=== PATIENT | female | born 1950 | race Caucasian/White ===

== ENCOUNTER → 2018-11-22 | Outpatient (CLI) | payer MEDICARE, BC ==
[~2018-11-22] MED LIST: HYDSUL200 PO; UNKNOWN B/P MED; [UNRECOGNIZED DRUG - REMARK]
[2018-11-23 15:14] LABS: Stool Occult Bld Immuno 1 Negative (NEGATIVE)
== END | disposition home or self-care (01) ==
LOC: LAB EV 00:49
PROVIDERS: Internal Medicine Gastroenterology
DX: Z12.11 Encounter for screening for malignant neoplasm of colon (principal)
CPT/HCPCS: G0328

== ENCOUNTER → 2018-11-23 | Outpatient (CLI) | payer MEDICARE, BC ==
[2018-11-24 14:15] LABS: Stool Occult Bld Immuno 1 Negative (NEGATIVE)
== END | disposition home or self-care (01) ==
LOC: LAB EV 09:22
PROVIDERS: Internal Medicine Gastroenterology
DX: Z12.11 Encounter for screening for malignant neoplasm of colon (principal)
CPT/HCPCS: G0328

== ENCOUNTER → 2020-12-01 | Outpatient (CLI) | payer MEDICARE, BC ==
[2020-12-02 14:15] LABS: Stool Occult Bld Immuno 1 Negative (NEGATIVE)
== END | disposition home or self-care (01) ==
LOC: LAB SHORT 09:30 → PLD 09:30
PROVIDERS: Family Medicine
DX: Z12.11 Encounter for screening for malignant neoplasm of colon (principal); R79.9 Abnormal finding of blood chemistry, unspecified; E78.9 Disorder of lipoprotein metabolism, unspecified
CPT/HCPCS: G0328

== ENCOUNTER 2021-12-23 11:51 | Emergency (ER) | payer MEDICARE, BC ==
[~2021-12-23] VITALS: Ht 160 cm; Wt 90.7 kg
[2021-12-23 12:52] LABS: BASOPHILS PERCENT AUTO 0 % (0-2); EOSINOPHILS ABSOLUTE AUTO 0.12 K/mm3 (0.00-0.68); EOSINOPHILS PERCENT AUTO 3 % (0-6); Hematocrit 35.1 % (33.0-51.0); Hemoglobin 11.8 g/dL (11.5-16.0); IMMATURE GRAN ABSOLUTE AUTO 0.01 K/mm3 (0.00-0.10); IMMATURE GRAN PERCENT AUTO 0 % (0-1); LYMPHOCYTES ABSOLUTE AUTO 1.37 K/mm3 (0.84-5.20); LYMPHOCYTES PERCENT AUTO 32 % (21-46); MONOCYTES ABSOLUTE AUTO 0.11 K/mm3 (0.16-1.47); MONOCYTES PERCENT AUTO 3 % (4-13); Mean Corpuscular HGB 32.8 pg (26.0-34.0); Mean Corpuscular HGB Conc 33.6 g/dL (31.5-36.5); Mean Corpuscular Volume 98 fL (80-100); Mean Platelet Volume 9.7 fL (9.1-12.4); NEUTROPHILS ABSOLUTE AUTO 2.66 K/mm3 (1.96-9.15); NEUTROPHILS PERCENT AUTO 62 % (41-73); RDW Coefficient Variation 14.9 % (11.7-14.2); RDW Standard Deviation 51.7 fL (35.1-46.3); White Blood Cell Count 4.27 K/mm3 (4.00-11.30)
[2021-12-23 12:55] LABS: Platelet Count 11 K/mm3 (150-400)
[2021-12-23 13:04] LABS: Alanine Aminotransfer (ALT/SGP 83 U/L (12-78); Albumin, Blood 3.1 g/dL (3.4-5.0); Albumin/Globulin Ratio 0.7 (0.8-1.8); Alk Phos 53 U/L (50-136); Anion Gap 5 mmol/L (6-16); Aspartate Aminotrans (AST/SGOT 81 U/L (12-37); Bilirubin, Total 0.5 mg/dL (0.1-1.0); Blood Urea Nitrogen 14 mg/dL (8-24); Bun/Creatinine Ratio 18.3 (12.0-20.0); CO2, Blood 29 mmol/L (21-32); Calcium, Blood 8.6 mg/dL (8.5-10.1); Chloride, Blood 105 mmol/L (98-108); Creatinine, Blood 0.77 mg/dL (0.40-1.00); Globulin, Blood 4.4 g/dL (2.2-4.0); Glomerular Filtration Rate >60 (60-); Glucose, Blood 109 mg/dL (70-99); Potassium, Blood 3.4 mmol/L (3.5-5.5); Sodium, Blood 139 mmol/L (136-145); Total Protein, Blood 7.5 g/dL (6.4-8.2)
[2021-12-23 16:35] LABS: Source, Urine Clean Catch
[2021-12-23 16:46] LABS: Appearance, Urine Clear (Clear); Bilirubin, Urine Neg (Neg); Blood, Urine 1+ (Neg); Glucose Qualitative, Urine Neg (Neg); Ketones, Urine 2+ (Neg); Leukocyte Esterase, Urine Neg (Neg); Nitrite, Urine Neg (Neg); Protein, Urine Neg (Neg); Urobilinogen, Urine NORM (Normal)
[2021-12-23 16:54] LABS: Color, Urine Pale Yellow (P-Yellow)
[2021-12-23 16:55] LABS: Bacteria Few /hpf; Red Blood Cells, Urine Rare /hpf (0-2); Squamous Epithelial Cells Rare /hpf (Few); White Blood Cells, Urine Not Seen /hpf (0-5)
[2021-12-23] MEDS ORDERED: AMOCLA875 PO (17:02)
[2021-12-23] MEDS ORDERED: PRED20 PO (17:02)
[2021-12-25] MEDS ORDERED: METOPROLOL SUCC25 MG PO (18:49)
[2021-12-25] MEDS ORDERED: Simvastatin10 MG PO (18:49)
[2021-12-25] MEDS ORDERED: METHOTREXATE PO (18:51)
[2021-12-25] MEDS ORDERED: MEDR10 PO (19:50)
[2021-12-25] MEDS ORDERED: ONDA4ODT SL (19:50)
== END 2021-12-23 17:13 | disposition home or self-care (01) ==
LOC: ER 11:51
PROVIDERS: Physician Assistant
DX: K52.9 Noninfective gastroenteritis and colitis, unspecified (principal); R93.89 Abnormal findings on diagnostic imaging of other specified body structures; D69.6 Thrombocytopenia, unspecified; I10 Essential (primary) hypertension; F17.200 Nicotine dependence, unspecified, uncomplicated; Z79.899 Other long term (current) drug therapy
CPT/HCPCS: 36415; 74177; 76830; 76856; 80053; 81001; 82272; 83690; 85025; 86850; 86900; 86901; 99284-25; A9270; J7030; J7512; Q9967

== ENCOUNTER → 2021-12-24 | Outpatient (CLI) | payer MEDICARE, BC ==
[~2021-12-24] MED LIST changes: +AMOCLA875 PO; +MEDR10 PO; +METHOTREXATE PO; +METOPROLOL SUCC25 MG PO; +ONDA4ODT SL; +PRED20 PO; +Simvastatin10 MG PO
[2021-12-24 15:53] LABS: RETIC HGB EQUIVALENT 42.4 pg (28.20-36.60); RETICULOCYTE ABSOLUTE 0.0174 M/mm3 (0.0200-0.1100); RETICULOCYTE COUNT PERCENT 0.5 % (0.50-2.50)
[2021-12-25 11:02] LABS: C DIFFICILE DNA NEGATIVE (Negative)
== END ==
LOC: LAB SHORT 15:17
PROVIDERS: Internal Medicine Hematology & Oncology
DX: D89.2 Hypergammaglobulinemia, unspecified (principal); K62.5 Hemorrhage of anus and rectum
CPT/HCPCS: 85045; 87493

== ENCOUNTER → 2021-12-28 | Outpatient (CLI) | payer MEDICARE, BC ==
[2021-12-29 18:10] LABS: HPV 16 Negative (Negative); HPV 18 Negative (Negative); HPV OTHER HR TYPES Negative (Negative)
== END | disposition home or self-care (01) ==
LOC: LAB SHORT 12:17 → LAB 12:17
PROVIDERS: Obstetrics & Gynecology
DX: Z01.419 Encounter for gynecological examination (general) (routine) without abnormal findings (principal)
CPT/HCPCS: 87624; G0123

== ENCOUNTER 2021-12-30 14:42 | Day surgery (SDC) | payer MEDICARE, BC ==
[~2021-12-30] VITALS: Ht 160 cm; Wt 89.6 kg
[2021-12-30 15:24] LABS: BASOPHILS ABSOLUTE AUTO 0.01 K/mm3 (0.00-0.23); BASOPHILS PERCENT AUTO 0 % (0-2); EOSINOPHILS ABSOLUTE AUTO 0.02 K/mm3 (0.00-0.68); EOSINOPHILS PERCENT AUTO 0 % (0-6); Hematocrit 35.6 % (33.0-51.0); Hemoglobin 11.7 g/dL (11.5-16.0); IMMATURE GRAN ABSOLUTE AUTO 0.19 K/mm3 (0.00-0.10); IMMATURE GRAN PERCENT AUTO 2 % (0-1); LYMPHOCYTES ABSOLUTE AUTO 2.12 K/mm3 (0.84-5.20); LYMPHOCYTES PERCENT AUTO 18 % (21-46); MONOCYTES ABSOLUTE AUTO 2.58 K/mm3 (0.16-1.47); MONOCYTES PERCENT AUTO 21 % (4-13); Mean Corpuscular HGB 32.7 pg (26.0-34.0); Mean Corpuscular HGB Conc 32.9 g/dL (31.5-36.5); Mean Corpuscular Volume 99 fL (80-100); Mean Platelet Volume 9.4 fL (9.1-12.4); NEUTROPHILS PERCENT AUTO 59 % (41-73); NRBC ABSOLUTE 0.09 K/mm3 (0.00-0.02); NRBC Auto 0.7 /100 WBC (0.0-0.2); Platelet Count 349 K/mm3 (150-400); RDW Coefficient Variation 18.8 % (11.7-14.2); RDW Standard Deviation 58.3 fL (35.1-46.3); Red Blood Cell Count 3.58 M/mm3 (3.80-5.20); White Blood Cell Count 12.12 K/mm3 (4.00-11.30)
--- NOTE | 2021-12-30 15:50 | NUR ---
Ambulatory in Day Surgery Lungs clear T/O to Auscultation. Patient confirms NPO status and agrees with scheduled surgery. Pre-Op teaching done. Pt verbalizes understanding. Patient States Post-Procedure ride home has been arranged.
--- NOTE | 2021-12-30 15:51 | NUR ---
PT HAD 2 PREOP CBCS DRAWN DUE TO THE FIRST ONE'S RESULTS BEING DRAMATICALLY DIFFERENT THEN HER PREVIOUS LABS. ORDERED BY DR. ALEXANDER AND DR. ESTRADA. DR. ESTRADA STATED NO EKG NEEDED TO BE DONE.
[2021-12-30 16:09] LABS: BASOPHILS ABSOLUTE AUTO 0.02 K/mm3 (0.00-0.23); BASOPHILS PERCENT AUTO 0 % (0-2); EOSINOPHILS ABSOLUTE AUTO 0.02 K/mm3 (0.00-0.68); EOSINOPHILS PERCENT AUTO 0 % (0-6); Hemoglobin 10.2 g/dL (11.5-16.0); IMMATURE GRAN ABSOLUTE AUTO 0.16 K/mm3 (0.00-0.10); IMMATURE GRAN PERCENT AUTO 1 % (0-1); LYMPHOCYTES ABSOLUTE AUTO 2.22 K/mm3 (0.84-5.20); LYMPHOCYTES PERCENT AUTO 19 % (21-46); MONOCYTES ABSOLUTE AUTO 2.53 K/mm3 (0.16-1.47); MONOCYTES PERCENT AUTO 22 % (4-13); Mean Corpuscular HGB 32.6 pg (26.0-34.0); Mean Corpuscular HGB Conc 32.9 g/dL (31.5-36.5); Mean Corpuscular Volume 99 fL (80-100); Mean Platelet Volume 9.3 fL (9.1-12.4); NEUTROPHILS ABSOLUTE AUTO 6.72 K/mm3 (1.96-9.15); NEUTROPHILS PERCENT AUTO 58 % (41-73); NRBC ABSOLUTE 0.08 K/mm3 (0.00-0.02); NRBC Auto 0.7 /100 WBC (0.0-0.2); Platelet Count 312 K/mm3 (150-400); RDW Coefficient Variation 18.8 % (11.7-14.2); RDW Standard Deviation 59.7 fL (35.1-46.3); Red Blood Cell Count 3.13 M/mm3 (3.80-5.20); White Blood Cell Count 11.67 K/mm3 (4.00-11.30)
--- NOTE | 2021-12-30 17:29 | NUR ---
1715- UP TO BR WITH STANDBY ASSIST ONLY. VOIDED EASILY AND HAD A SMALL AMT OF RED VAG DRAINAGE. IV DC'D WITH CATH INTACT. EATING CRACKERS AND DRINKING WATER W/O NAUSEA
--- NOTE | 2021-12-30 17:38 | NUR ---
1732-DISCHARGED TO HOME ACC BY
== END 2021-12-30 17:37 | disposition home or self-care (01) ==
LOC: ORSCMMR 14:42 → ORD 14:42
PROVIDERS: Obstetrics & Gynecology
PROC: 0UDB8ZX Extraction of Endometrium, Via Natural or Artificial Opening Endoscopic, Diagnostic (ICD-10-PCS; principal; 2021-12-30 15:00)
DX: N95.0 Postmenopausal bleeding (principal); N84.0 Polyp of corpus uteri; D64.9 Anemia, unspecified; D69.6 Thrombocytopenia, unspecified; R93.89 Abnormal findings on diagnostic imaging of other specified body structures; F17.210 Nicotine dependence, cigarettes, uncomplicated; J45.909 Unspecified asthma, uncomplicated; M19.90 Unspecified osteoarthritis, unspecified site; I10 Essential (primary) hypertension; E78.00 Pure hypercholesterolemia, unspecified; E66.9 Obesity, unspecified; Z68.35 Body mass index [BMI] 35.0-35.9, adult; E16.2 Hypoglycemia, unspecified; Z79.899 Other long term (current) drug therapy
CPT/HCPCS: 85025; 88305; A9270; J1100; J2405; J2704; J3010; J7120

== ENCOUNTER 2022-01-06 07:23 | Emergency (ER) | payer MEDICARE, BC ==
[~2022-01-06] VITALS: Ht 170.2 cm; Wt 83.9 kg
[2022-01-06 07:48] LABS: BASOPHILS ABSOLUTE AUTO 0.04 K/mm3 (0.00-0.23); BASOPHILS PERCENT AUTO 0 % (0-2); EOSINOPHILS PERCENT AUTO 0 % (0-6); Hematocrit 35.2 % (33.0-51.0); Hemoglobin 11.4 g/dL (11.5-16.0); IMMATURE GRAN ABSOLUTE AUTO 0.52 K/mm3 (0.00-0.10); IMMATURE GRAN PERCENT AUTO 4 % (0-1); LYMPHOCYTES ABSOLUTE AUTO 0.68 K/mm3 (0.84-5.20); LYMPHOCYTES PERCENT AUTO 6 % (21-46); MONOCYTES PERCENT AUTO 4 % (4-13); Mean Corpuscular HGB 32.5 pg (26.0-34.0); Mean Corpuscular HGB Conc 32.4 g/dL (31.5-36.5); Mean Corpuscular Volume 100 fL (80-100); Mean Platelet Volume 8.8 fL (9.1-12.4); NEUTROPHILS ABSOLUTE AUTO 10.38 K/mm3 (1.96-9.15); NEUTROPHILS PERCENT AUTO 86 % (41-73); NRBC ABSOLUTE 0.09 K/mm3 (0.00-0.02); NRBC Auto 0.7 /100 WBC (0.0-0.2); Platelet Count 632 K/mm3 (150-400); RDW Standard Deviation 70.7 fL (35.1-46.3); Red Blood Cell Count 3.51 M/mm3 (3.80-5.20); White Blood Cell Count 12.12 K/mm3 (4.00-11.30)
[2022-01-06 08:06] LABS: Alanine Aminotransfer (ALT/SGP 33 U/L (12-78); Albumin, Blood 3.1 g/dL (3.4-5.0); Albumin/Globulin Ratio 0.8 (0.8-1.8); Alk Phos 52 U/L (50-136); Anion Gap 5 mmol/L (6-16); Aspartate Aminotrans (AST/SGOT 20 U/L (12-37); Bilirubin, Total 0.4 mg/dL (0.1-1.0); Blood Urea Nitrogen 21 mg/dL (8-24); Bun/Creatinine Ratio 23.8 (12.0-20.0); CO2, Blood 29 mmol/L (21-32); Calcium, Blood 8.6 mg/dL (8.5-10.1); Chloride, Blood 108 mmol/L (98-108); Creatinine, Blood 0.88 mg/dL (0.40-1.00); Globulin, Blood 3.7 g/dL (2.2-4.0); Glomerular Filtration Rate >60 (60-); Glucose, Blood 142 mg/dL (70-99); Potassium, Blood 4.3 mmol/L (3.5-5.5); Sodium, Blood 142 mmol/L (136-145); Total Protein, Blood 6.8 g/dL (6.4-8.2)
[2022-01-06 08:12] LABS: International Normalized Ratio 1.11; Prothrombin Time Results 11.6 Sec (9.7-11.5)
== END 2022-01-06 09:52 | disposition short-term general hospital (02) ==
LOC: ER 07:23
PROVIDERS: Student in an Organized Health Care Education/Training Program
DX: I63.9 Cerebral infarction, unspecified (principal); R47.1 Dysarthria and anarthria; Z79.899 Other long term (current) drug therapy; Z79.52 Long term (current) use of systemic steroids; I10 Essential (primary) hypertension
CPT/HCPCS: 70450; 70496; 70498; 71045; 80053; 82947; 85025; 85610; 85730; 93005; 93010; 99285-25; A9270; Q9967

== ENCOUNTER → 2022-03-01 | Outpatient (CLI) | payer MEDICARE, BC ==
[2022-03-01 21:26] LABS: Percent Saturation 25.8 % (15.0-50.0); Thyroid Stimulating Hormone 1.27 uIU/mL (0.360-4.800); Thyroxine (T4) 10.2 ug/dL (4.8-13.9)
== END ==
LOC: LAB SHORT 11:23
PROVIDERS: Internal Medicine Hematology & Oncology
DX: E53.8 Deficiency of other specified B group vitamins (principal); D69.6 Thrombocytopenia, unspecified; R53.83 Other fatigue
CPT/HCPCS: 82607; 82728; 82746; 83540; 83550; 84436; 84443

== ENCOUNTER 2022-03-30 09:49 | Day surgery (SDC) | payer MEDICARE, BC ==
[~2022-03-30] VITALS: Ht 162.6 cm; Wt 86.0 kg
[2022-03-30] MEDS ORDERED: ATOR20 PO (11:05)
[2022-03-30] MEDS ORDERED: Aspir 8181 MG PO (11:05)
== END 2022-03-30 12:18 | disposition home or self-care (01) ==
LOC: ORSCSDS 09:49
PROVIDERS: Internal Medicine Gastroenterology
PROC: 0DBN8ZX Excision of Sigmoid Colon, Via Natural or Artificial Opening Endoscopic, Diagnostic (ICD-10-PCS; principal; 2022-03-30 11:15)
DX: K62.5 Hemorrhage of anus and rectum (principal); K57.30 Diverticulosis of large intestine without perforation or abscess without bleeding; Z86.010 Personal history of colon polyps; K52.9 Noninfective gastroenteritis and colitis, unspecified; F17.210 Nicotine dependence, cigarettes, uncomplicated; E66.9 Obesity, unspecified; Z68.34 Body mass index [BMI] 34.0-34.9, adult; Z79.82 Long term (current) use of aspirin; Z79.899 Other long term (current) drug therapy
CPT/HCPCS: 88305; J2704; J7120

== ENCOUNTER 2025-06-11 11:36 | Inpatient (IN) | payer MEDICARE, BC ==
[~2025-06-11] VITALS: Ht 157.5 cm; Wt 63.5 kg
[~2025-06-11 11:36] MED LIST changes: +ATOR20 PO; +Aspir 8181 MG PO
[2025-06-11] MEDS ORDERED: NS 1,000 ML IV SCH ×3 (11:50→16:45)
[2025-06-11 12:22] LABS: BASOPHILS ABSOLUTE AUTO 0.03 K/mm3 (0.00-0.23); BASOPHILS PERCENT AUTO 0 % (0-2); EOSINOPHILS ABSOLUTE AUTO 0.01 K/mm3 (0.00-0.68); EOSINOPHILS PERCENT AUTO 0 % (0-6); Hematocrit 42.3 % (33.0-51.0); Hemoglobin 14.6 g/dL (11.5-16.0); IMMATURE GRAN ABSOLUTE AUTO 0.09 K/mm3 (0.00-0.10); IMMATURE GRAN PERCENT AUTO 1 % (0-1); LYMPHOCYTES ABSOLUTE AUTO 0.93 K/mm3 (0.84-5.20); LYMPHOCYTES PERCENT AUTO 6 % (21-46); MONOCYTES ABSOLUTE AUTO 2.06 K/mm3 (0.16-1.47); MONOCYTES PERCENT AUTO 14 % (4-13); Mean Corpuscular HGB Conc 34.5 g/dL (31.5-36.5); Mean Corpuscular Volume 96 fL (80-100); NEUTROPHILS ABSOLUTE AUTO 12.10 K/mm3 (1.96-9.15); NEUTROPHILS PERCENT AUTO 80 % (41-73); NRBC ABSOLUTE 0.00 K/mm3 (0.00-0.02); NRBC Auto 0.0 /100 WBC (0.0-0.2); Platelet Count 188 K/mm3 (150-400); RDW Coefficient Variation 15.2 % (11.7-14.2); RDW Standard Deviation 53.2 fL (35.1-46.3)
[2025-06-11 12:49] LABS: Alanine Aminotransfer (ALT/SGP 24.0 U/L (12-78); Albumin, Blood 3.6 g/dL (3.4-5.0); Albumin/Globulin Ratio 0.9 (0.8-1.8); Anion Gap 8.0 mmol/L (3-11); Aspartate Aminotrans (AST/SGOT 39.0 U/L (12-37); Bilirubin, Total 0.5 mg/dL (0.1-1.0); Blood Urea Nitrogen 26.0 mg/dL (8-24); CO2, Blood 32.0 mmol/L (21-32); Calcium, Blood 11.5 mg/dL (8.5-10.1); Chloride, Blood 98.0 mmol/L (98-108); Creatinine, Blood 0.69 mg/dL (0.40-1.00); Globulin, Blood 4.2 g/dL (2.2-4.0); Glucose, Blood 128.0 mg/dL (70-99); Potassium, Blood 2.9 mmol/L (3.5-5.5); Sodium, Blood 135.0 mmol/L (136-145); Total Protein, Blood 7.8 g/dL (6.4-8.2)
[2025-06-11] MEDS ORDERED: Prochlorperazine Edisylate 10 mg Vial IV PRN (16:40)
[2025-06-11] MEDS ORDERED: HYDROmorphone HCl/Pf 1MG SYR IV PRN (16:45)
[2025-06-11] MEDS ORDERED: Ketorolac Tromethamine 15mg Vial IV PRN (16:55)
[2025-06-11] MEDS ORDERED: Dexamethasone Sodium Phosphate 4 MG/ML 1ML Vial IV SCH (17:00)
[2025-06-11 20:25] VITALS: BP 148/72
[2025-06-11 21:33] LABS: Anion Gap 10.0 mmol/L (3-11); Blood Urea Nitrogen 17.0 mg/dL (8-24); CO2, Blood 27.0 mmol/L (21-32); Calcium, Blood 9.6 mg/dL (8.5-10.1); Chloride, Blood 106.0 mmol/L (98-108); Creatinine, Blood 0.49 mg/dL (0.40-1.00); Glucose, Blood 127.0 mg/dL (70-99); Potassium, Blood 3.8 mmol/L (3.5-5.5); Sodium, Blood 139.0 mmol/L (136-145)
[2025-06-12 03:05] VITALS: BP 162/64
--- NOTE | 2025-06-12 05:51 | NUR ---
ADMISSION AND SHIFT SUMMARY ASSUMED CARE AT 1954. A/Ox4, HR 55-69, OTHER VSS ON RA. PT REPORTS 8-9/10 PAIN AT R LEG AND LOW BACK, PRN DILAUDID EFFECTIVE. MED RECONCILIATION INCOMPLETE; PT STATES SPOUSE WILL PROVIDE CURRENT LIST. PT REPORTS SHE'S GONE A WEEK WITHOUT TAKING HOME MEDS " NOT ABLE TO ACCESS THEM". NS AT 125 ML/HR. CLEAR LIQUID DIET. MRI CHECKLIST WAS FAXED. ORTHO CONSULT PLACED.
[2025-06-12 06:22] LABS: Hematocrit 38.3 % (33.0-51.0); Hemoglobin 12.9 g/dL (11.5-16.0); Mean Corpuscular HGB Conc 33.7 g/dL (31.5-36.5); Mean Corpuscular Volume 98 fL (80-100); NRBC ABSOLUTE 0.00 K/mm3 (0.00-0.02); NRBC Auto 0.0 /100 WBC (0.0-0.2); Platelet Count 153 K/mm3 (150-400); RDW Coefficient Variation 15.3 % (11.7-14.2); RDW Standard Deviation 54.4 fL (35.1-46.3)
[2025-06-12 07:16] LABS: Albumin, Blood 3.1 g/dL (3.4-5.0); Anion Gap 9 mmol/L (3-11); Blood Urea Nitrogen 17 mg/dL (8-24); CO2, Blood 29 mmol/L (21-32); Calcium, Blood 9.4 mg/dL (8.5-10.1); Chloride, Blood 106 mmol/L (98-108); Creatinine, Blood 0.47 mg/dL (0.40-1.00); Glucose, Blood 105 mg/dL (70-99); Magnesium, Blood 2.1 mg/dL (1.6-2.4); Phosphorus, Blood 1.9 mg/dL (2.5-4.9); Potassium, Blood 3.5 mmol/L (3.5-5.5); Sodium, Blood 140 mmol/L (136-145)
[2025-06-12 07:40] VITALS: BP 143/68
[2025-06-12] MEDS ORDERED: Sodium Phosphate Mono/Dibasic 250 MG Tab PO SCH (08:00)
[2025-06-12] MEDS ORDERED: Enoxaparin 40 MG/0.4 ML SYR SC SCH (09:00)
--- NOTE | 2025-06-12 10:13 | NUR ---
ASSUMED CARE. PT A/O X 4 VERY PLEASENT, LAY QUIETLY IN BED AWAITING MRI, NO C/O PAIN AT THIS TIME. WAS NOTIFIED TO PLEASE BRING IN PT MEDICATION. CALL LIGHT WITHIN REACH MAKES NEEDS KNOWN.
--- NOTE | 2025-06-12 14:24 | NUR ---
Spiritual Care Visit conducted Chantelle (pt) is awake and lying upright in bed. Pt is friendly and conversational and often laughs in the midst of our discussion. Life review conducted. Pt finds value and meaning in her relationship and describes how she and her spouse met. Pt believes "god put him there." Examined pt's spiritual beliefs. Pt says she "believes robustly but does not preach robustly." Provided compassionate listening and encouraged pt in her continuing "robust" beliefs. Pt believes in "looking forward and focusing on the postive" as a way of coping with her circumstances. Pt emphasizes her difficulty walking as one her main challenges in addition to various bouts with cancer. Pt communicated that she was beginning to feel tired, offerred prayed to pt. Pt accepted and thanked me for the visit and asked me to stop by again later. Pt described the visit as helpful and appeared more at ease following the visit.
[2025-06-12 15:29] VITALS: BP 152/70
[2025-06-12] MEDS ORDERED: FOLI1 PO (16:47)
--- NOTE | 2025-06-12 17:01 | NUR ---
MET WITH PATIENT TO DISCUSS GOALS OF CARE. PATIENT EXPRESSED THAT SHE DOES NOT FEEL WELL. WE DISCUSSED HER DIAGNOSIS. PATIENT REPORTED THAT SHE WOULD LIKE TO SPEAK TO ONCOLOGY TO DISCUSS TREATMENT PLAN. WE DISCUSSED CODE STATUS AND SHE WOULD LIKE TO REMAIN A FULL CODE AT THIS TIME. THERAPUTIC CONVERSATION
--- NOTE | 2025-06-12 18:49 | NUR ---
PT DOING WELL, MINIMAL PAIN 6/10 PT MEDICATED. CALL LIGHT WITHIN REACH AND HAS BEEN MAKING NEEDS KNOWN. [facility] CANTACTED AND WILL BE HAVINING APPOINTMENT WITH PT CONCERING TREATMENT PLAN, PT WILL HAVE TO BE PRESENT ACROSS THE STREET INORDER TO HAVE MORE IMAGES DONE FOR TREATMENT.. AMBULANCE WILL BE CALLED IN AT 0800 FOR 0900 APPONTMENT.
[2025-06-12] MEDS ORDERED: Albuterol 2.5 MG/3 ML VIAL INH PRN (19:15)
[2025-06-12 19:54] VITALS: BP 140/59
[2025-06-13 04:59] VITALS: BP 150/84
--- NOTE | 2025-06-13 06:31 | NUR ---
Shift Summary Pt medicated per EMAR for headache and back pain. No dilauded needed this shift, good relief with Toradol. Pt slept comfortably t/o most of the night. Purewick in place for voids. Pt AOx4, calls appropriatly. Plan for ambulance transport to [facility] today at 0800 and then back to [facility].
[2025-06-13 07:22] VITALS: BP 153/61
--- NOTE | 2025-06-13 11:45 | NUR ---
DR RAT, ORTHOPEDIC MD ACCEPTED CONSULT, SPOKEN TO ON THE PHONE.
--- NOTE | 2025-06-13 14:02 | NUR ---
"Spiritual Care Visit m| Pt./ Nurse Request Pt. is awake in bed and welcomes my visit. Pt. is pleasant. Facilitated a life review and introduction as this was our first visit. Pt. verbalized frustration that her cancer diagnosis sometimes makes it hard to get her words out. Listen with empathy and a calming presence. Pt. also verbalzies that she live in [place], and her recent health stuggles have really only presenrted themselve in the las 2-3 weeks. During the visit Dr. Tamez dropped in and spent time with the Pt. while this recycling tech was present. Matters of brandee and belief are considered and clarified. Took Pt. by the hand and prayed for her. Pt. verbalizes that prayer was the care she presently needed and welcomed this recycling tech to return."
--- NOTE | 2025-06-13 16:09 | NUR ---
SHIFT SUMMARY MS MEJIA WAS TRANSFERED VIA [facility] TO THE [facility]ER C[facility] THIS MORNING FOR APPROX 2 HOURS. SHE SAID SHE GOT HER MASK FITTED IN PREP FOR RADIATION TREATMENT STARTING ON MONDAY. SHE HAS SOME NAUSEA, MEDICATED, NO EMESIS, STILL ON CLEAR LIQUID DIET AND TOLERATING IT SLOWLY. DR ART CONTACTED REGARDING ORTHO REFERAL. SHE IS C/O PAIN TO HER LOWER BACK. HER RIGHT LEG IS SORE WHEN IT IS REPOSITIONED. PAIN DOWN TO 5/10 POST ANALGESIA. SHE IS NONE WEIGHT BEARING, REPOSITIONED IN BED Q2HRS. SHE REPORTS DOUBLE VISION THAT HAS BEEN ON AND OFF FOR 6 DAYS. ALSO C/O SOME DIFFICULTY FINDING WORDS AT TIMES, AND THAT HER THOUGHTS GET MUDDLED. APPROPRIATE CONVERSATION, ORIENTATED TO QUESTIONS. INCONTINENT OF URINE, PURE WICK IN PLACE. BED LOW, CALL LIGHT IN REACH, BED ALARM ON.
[2025-06-13 16:25] VITALS: BP 155/66
[2025-06-13 19:56] VITALS: BP 153/78
[2025-06-13 20:43] VITALS: BP 169/87
[2025-06-13] MEDS ORDERED: Metoprolol Tartrate 1 MG/ML 5 ML VIAL IV ONE (21:15)
--- NOTE | 2025-06-13 21:38 | NUR ---
SVT/CHEST PRESSURE ENTERTAINMENT REPORTER notified this RN RE patient c/o "heart racing". Selena Antonio, (systems program manager) was already in the room by the time this RN arrived. VS obtained and HR found to be at 105. Per Selena, manual HR was at 150 moments ago when pt c/o her heart racing. Once vitals obtained, HR slowly increased and now was 170's on the VS cart monitor. EKG obtained which showed STEMI. Patient never c/o chest pain or shortness of breath except a little bit of pressure to the left of her sternum and the palpitations. Keely Martinez NP called and received T.O. for stat EKG, Troponin now and another one 2 hours from now, and telemetry. Copy of EKG sent down to ER for review per Gustavo's request. When Gustavo arrived to take a look at patient, received V.O. from Gustavo to give once 5mg IV lopressor for heart rate of 170. Upon review of home meds and further questioning, patient did report not taking her metoprolol for approx 1-2 weeks now. Gustavo will resume home med PO metoprolol succinate. Tele placed on patient. Repeat EKG done per Gustavo at the bedside; this time shows NSR w/ BBB @ 90 bpm.
[2025-06-13] MEDS ORDERED: Ondansetron HCl 2 MG / ML 2ML Vial IV PRN (23:25)
--- NOTE | 2025-06-13 23:26 | NUR ---
PO METOPROLOL, MELATONIN, & ZOFRAN Awaiting order for metoprolol tartrate but have not seen it. Call made to tye Chen NP for updates on the order he said he was going to enter above. Since patient was requesting for melatonin and persistent nausea, also inquired about adding in the other prn meds above. Received T.O. to give 25mg PO metoprolol tartrate BID with first dose now, 5mg PO melatonin nightly prn for sleep, and 4mg iv zofran every 4 hours as needed for nausea. Orders entered.
[2025-06-13 23:41] VITALS: BP 145/64
[2025-06-14] VITALS (8 sets, daily range): BP systolic 127–155; BP diastolic 60–91
[2025-06-14 06:39] LABS: Anion Gap 6.0 mmol/L (3-11); Blood Urea Nitrogen 17.0 mg/dL (8-24); CO2, Blood 33.0 mmol/L (21-32); Calcium, Blood 9.4 mg/dL (8.5-10.1); Chloride, Blood 102.0 mmol/L (98-108); Creatinine, Blood 0.56 mg/dL (0.40-1.00); Glucose, Blood 122.0 mg/dL (70-99); Potassium, Blood 4.3 mmol/L (3.5-5.5); Sodium, Blood 137.0 mmol/L (136-145)
--- NOTE | 2025-06-14 08:04 | NUR ---
Shift Summary After the events that occurred at the beginning of the shift, patient is doing well. Slept pretty good. Medicated x 1 for for severe back pain and nausea with good effect. Tele: NSR BBB 60-70s. Voiding well, purewick in place. Last bm was charted for 06/11, but no bowel meds have been ordered despite Progress Note stating constipation. Plan for MRI of R leg and to have her first radiation treatment on Monday. Claudia, primary day RN to followup w/ bowel care. Report handed off to Claudia, care relinquished.
--- NOTE | 2025-06-14 09:40 | NUR ---
HEART RATE SUSTAINED 140S. BP STABLE. SHE TOOK PO METOPROLOL AROUND 15 MINUTES BEFORE EPISODE STARTED. PT FEELS ASYMPTOMATIC. DR LACEY ASSESSED PT AND PUTTING IN NEW ORDERS.
[2025-06-14] MEDS ORDERED: Metoprolol Tartrate 1 MG/ML 5 ML VIAL IV PRN (09:45)
[2025-06-14] MEDS ORDERED: NS 1,000 ML IV SCH (11:00)
--- NOTE | 2025-06-14 13:44 | NUR ---
RN NOTE MS MEJIA HAD MRI DONE THIS MORNING W/WO CONTRAST. ON RETURN SHE STOOD WITH WALKER AND GAIT BELT AND 1-2 PERSON ASSIST AND WALKED A FEW STEPS TO THE RECLINER. SHE DID WELL. SHE GOT TORADOL THAT HELPED TO EASE THE PAIN. SHE SAID SHE FELT READY FOR MORE SOLID FOOD AND TOLERATED A SANDWICH AND PUDDING WITH HER LUNCH. NO EMESIS, MILD NAUSEA BUT DECLINING NAUSEA MEDICATIONS. BACK TO BED WITH WALKER/GB AND 1 PERSON ASSIST. INCONTINENT OF URINE, USING PUREWICK. SHE REPORTS THAT URINARY INCONTINENCE IS JUST FOR THE PAST TWO WEEKS. NO BM, DR LACEY NOTIFIED AND COLACE GIVEN. HEART RATE INCREASE TO 140S WITH PT ASYMPTOMATIC THIS MORNING RETURNED TO RATE IN THE 70S WITHOUT METOPROLOL IV.
--- NOTE | 2025-06-14 19:47 | NUR ---
SHIFT SUMMARY MS MEJIA HAD R LEG MRI THIS MORNING, AND IS ON THE OR SCHEDULE FOR SURGERY TOMORROW, NPO POST MIDNIGHT. SHE GOT A BATH AND INFECTION PREVENTION SCRUB/MOUTH WATH/NARES AT 1900HRS. SHE IS ORIENTATED X4, SOME OCCASIONAL DIFFICULTY FINDING WORDS AND SHE STILL HAS DOUBLE VISION. SHE STARTED A REGULAR DIET TODAY AND ENJOYED LUNCH AND SUPPER WITH MINIMAL NAUSEA. SR 1ST DEGREE AVB ON TELEMETRY. HR SUSTAINED 140S THIS AM FOR SEVERAL MINUTES, PT ASYMPTOMATIC AND NO EPISODES SINCE. NO BM TODAY +FLATUS. BED LOW, CALL LIGHT IN REACH.
[2025-06-15] VITALS (7 sets, daily range): BP systolic 116–177; BP diastolic 60–105
--- NOTE | 2025-06-15 04:28 | NUR ---
PATIENT A/OX4, PLEASANT AND COOPERATIVE WITH CARE THIS SHIFT. NPO SINCE MIDNIGHT FOR R LEG SURGERY TODAY. PATIENT INCONTINENT OF URINE, PUREWICK IN USE. SKIN INTACT. MEDICATED FOR LOW BACK PAIN X2 THIS SHIFT. CONTINUES TO HAVE "DOUBLE VISION." PATIENT ALSO HAVING SOME VISUAL HALLUCINATIONS AND SAW AN ORANGE CAT AND AN OLD MAN IN HER ROOM. BED ALARM SET FOR SAFETY. CALLS APPROPRIATELY FOR ASSISTANCE.
[2025-06-15 06:28] LABS: Magnesium, Blood 1.9 mg/dL (1.6-2.4)
[2025-06-15 06:29] LABS: Anion Gap 11.0 mmol/L (3-11); Blood Urea Nitrogen 15.0 mg/dL (8-24); CO2, Blood 25.0 mmol/L (21-32); Calcium, Blood 8.4 mg/dL (8.5-10.1); Chloride, Blood 105.0 mmol/L (98-108); Creatinine, Blood 0.42 mg/dL (0.40-1.00); Glucose, Blood 110.0 mg/dL (70-99); Phosphorus, Blood 2.3 mg/dL (2.5-4.9); Potassium, Blood 4.0 mmol/L (3.5-5.5); Sodium, Blood 137.0 mmol/L (136-145)
[2025-06-15] MEDS ORDERED: Dexamethasone Sodium Phosphate 4 MG/ML 1ML Vial IV SCH ×2 (11:15→21:00)
--- NOTE | 2025-06-15 18:11 | NUR ---
PATIENT IS ALERT AND ORIENTED AND COOPERATIVE WITH CARE. SOME WORD FINDING DIFFICULTIES. LOW BACK PAIN MANAGED PER EMAR AND WITH A HEATING PAD. PROCEDURE WAS CANCELED TODAY, DR. ART ORDERED NPO AT MIDNIGHT FOR POSSIBLE PROCEDURE TOMORROW. TELE IN PLACE, SR AT 75 BPM. THREE EPISODES OF SVT TODAY, MANAGED PER EMAR AND DR. LACEY NOTIFIED. PUREWICK IN PLACE. SMALL BM THIS AFTERNOON. WILL CONTINUE TO MONITOR
[2025-06-16] VITALS (7 sets, daily range): BP systolic 147–182; BP diastolic 64–97
--- NOTE | 2025-06-16 05:09 | NUR ---
SHIFT SUMMARY: PT AOX4 2PA TO THE BSC. CALLS APPROPRIATELY AND ABLE TO MAKE NEEDS KNOWN. PT TOLERATING MEDICATIONS WELL. COMPLAINTS OF PAIN, MEDICATED PER EMR. HAD A RUN OF AFIB RVR PER TELE AT START OF SHIFT WHICH RESOLVED ON ITS OWN. NO ACUTE OVERNIGHT EVENTS. ATTEMPTED TO HAVE A BM BUT ONLY SOME GAS. PT HAS PUREWICK IN PLACE WITH GOOD OUTPUT. DENIES SOB OR CP. PT IN BED SLEEPING, BED IN LOWEST POSITION, CALL LIGHT IN REACH. CARDIOLOGY CONSULT PUT IN THIS PM. MADE NPO AT MIDNIGHT FOR POTENTIAL SX TODAY. CONTINUING CARE.
[2025-06-16] MEDS ORDERED: Tranexamic Acid 100 ML IV SCH (07:20)
[2025-06-16] MEDS ORDERED: CeFAZolin Sodium 2,000 MG in NS 100 ML IV SCH (07:20)
[2025-06-16] MEDS ORDERED: Pantoprazole Sodium 40 MG Injection IV SCH (10:00)
[2025-06-16] MEDS ORDERED: Dexamethasone Sodium Phosphate 4 MG/ML 1ML Vial IV SCH (10:00)
--- NOTE | 2025-06-16 15:03 | NUR ---
PT LEFT FOR DAY SURGERY- PT GOING TO DAY SURGERY WITH DR WILKES. RAD ONCOLOGY NOTIFIED AND THE PT WILL NOT BE GOING TO RAD TREATMENT TODAY POST-OP. UNCERTAIN THE PLAN FOR DISCHARGE AT THIS TIME. FAMILY IS VERY INVOLVED AND TRYING TO DETERMINE WHAT IS NEXT FOR HER IN HER TREATMENT CORSE.
--- NOTE | 2025-06-16 15:33 | NUR ---
PT TRANSPORTED TO [facility]. AGREES WITH PLANNED SURGERY. OCCASIONAL MOIST COUGH, LUNGS CLEAR TO ASCULTATION. ON O2 AT 2LPM. FAMILY AT BEDSIDE. PUREWICK IN PLACE. DRAINING RED URINE. SPOKE WITH MEDICAL FLOOR RN AND SHE STATES IT HAS BEEN PINK ALL DAY. PURE WICK REMOVED. NOT VAGINAL IRITATIN NOTED. PATIENT DENIES PAIN. MEDICAL FLOOR NURSE NOTIFIED AND SHE STATES SHE WILL INFORM HOSPITALIST.
--- NOTE | 2025-06-16 16:03 | NUR ---
DR. RODRIGUEZ NOTIFED OF RED IN URINE. HE SPOKE WITH PATIENT AND FAMILY AND CANCELLED SURGERY FOR TODAY. HE STATES HE WILL NOTIFY HOSPITALIST FOR A WORKUP AND POTENTIALLY DO SURGERY TOMORROW. PATIENT TRANSFERRED BACK TO MEDICAL FLOOR AND BRADY PRYOR GIVEN REPORT.
[2025-06-16 16:34] LABS: Hematocrit 41.1 % (33.0-51.0); Hemoglobin 13.8 g/dL (11.5-16.0); Mean Corpuscular HGB Conc 33.6 g/dL (31.5-36.5); Mean Corpuscular Volume 97 fL (80-100); NRBC ABSOLUTE 0.00 K/mm3 (0.00-0.02); NRBC Auto 0.0 /100 WBC (0.0-0.2); Platelet Count 183 K/mm3 (150-400); RDW Coefficient Variation 15.3 % (11.7-14.2); RDW Standard Deviation 54.4 fL (35.1-46.3)
[2025-06-16 16:38] LABS: Prothrombin Time Results 12.4 Sec (9.7-11.5)
[2025-06-16 17:08] LABS: Source, Urine Clean Catch
[2025-06-16 17:45] LABS: Bilirubin, Urine Neg (Neg); Glucose Qualitative, Urine Neg (Neg); Ketones, Urine Neg (Neg); Leukocyte Esterase, Urine 3+ (Neg); Protein, Urine 3+ (Neg); Specific Gravity, Urine 1.010 (1.003-1.022); Urobilinogen, Urine NORM (Normal)
[2025-06-16 18:07] LABS: Color, Urine Red (P-Yellow)
[2025-06-16 18:08] LABS: Red Blood Cells, Urine TNTC /hpf (0-2); White Blood Cells, Urine TNTC /hpf (0-5)
[2025-06-16] MEDS ORDERED: CefTRIAXone Sodium 1,000 MG in NS 100 ML IV SCH (18:35)
[2025-06-16] MEDS ORDERED: NS 1,000 ML IV SCH (18:35)
--- NOTE | 2025-06-16 19:46 | NUR ---
SHIFT SUMMARY- PT ALERT AND ORIENTED, SHE HAS SOME DIFFICUTY FINDING HER WORDS AND HER HEART RACES INTO SVT OFF AND ON LEAVING HER TOO WEAK TO PARTICIPATE MUCH. TONIGHT SHE SUSTAINED SVT FOR 7 MINUTES, DR NOTIFIED, SHE WAS AT A RATE OF 150-170 PER TELE. PT DROPPED BACK TO 64-71 RATE SUDDENLY ON HER OWN. IV METOPROLOL WAS PULLED BUT NOT GIVEN, PLACED IN THE PT LOCKED DRAWER. PT WAS SCHEDULED TO GO FOR SURGERY TODAY, BUT SHE DEVELOPED BLOODY URINE. UA COMPLETED. SPOKE TO DR LACEY AND THE PT HAS AN ORDER FOR IVF AND ROCEPHIN. NIGHT RN AWARE. NPO AT MIDNIGHT FOR SURGERY TOMORROW. BEDSIDE REPORT COMPLETED WITH NIGHT RN, NO S&S OF DISTRESS NOTED.
[2025-06-17] VITALS (8 sets, daily range): BP systolic 146–175; BP diastolic 65–90
--- NOTE | 2025-06-17 04:56 | NUR ---
SHIFT SUMMARY: PT AOX4 CALLS APPROPRIATELY AND ABLE TO MAKE NEEDS KNOWN. TOLERATING MEDICATIONS WELL, NO ACUTE OVERNIGHT EVENTS. STILL HAVING RED OUTPUT IN THE PUREWCK, NO SIGNS OF EXCORIATION OR SKIN BREAK DOWN AROUND IT. ANXIOUS TO HAVE PROCEDURE DONE. PALLIATIVE CONSULTED TO HAVE A MEETING WITH HER AND AT 10. COMPLAINTS OF PAIN AND NAUSEA MEDICATED PER EMR. PT MADE NPO AT MIDNIGHT. PT IN BED SLEEPING, BED IN LOWEST POSITION, CALL LIGHT IN REACH. CONTINUING CARE.
[2025-06-17 05:11] LABS: Hematocrit 40.8 % (33.0-51.0); Hemoglobin 13.6 g/dL (11.5-16.0); Mean Corpuscular HGB Conc 33.3 g/dL (31.5-36.5); Mean Corpuscular Volume 97 fL (80-100); NRBC ABSOLUTE 0.02 K/mm3 (0.00-0.02); NRBC Auto 0.1 /100 WBC (0.0-0.2); Platelet Count 151 K/mm3 (150-400); RDW Coefficient Variation 15.1 % (11.7-14.2); RDW Standard Deviation 53.2 fL (35.1-46.3)
[2025-06-17 05:35] LABS: Magnesium, Blood 2.1 mg/dL (1.6-2.4)
[2025-06-17 05:36] LABS: Anion Gap 7.0 mmol/L (3-11); Blood Urea Nitrogen 20.0 mg/dL (8-24); CO2, Blood 33.0 mmol/L (21-32); Calcium, Blood 9.9 mg/dL (8.5-10.1); Chloride, Blood 99.0 mmol/L (98-108); Creatinine, Blood 0.52 mg/dL (0.40-1.00); Glucose, Blood 117.0 mg/dL (70-99); Phosphorus, Blood 2.4 mg/dL (2.5-4.9); Potassium, Blood 3.4 mmol/L (3.5-5.5); Sodium, Blood 136.0 mmol/L (136-145)
[2025-06-17] MEDS ORDERED: Potassium Phosphate Dibasic 30 MM in Dextrose 5% 500 ML IV STA (11:11)
--- NOTE | 2025-06-17 12:13 | NUR ---
MET WITH PT AND JACKIE THIS AM. WE DISCUSSED GOALS OF CARE, AND BOTH PATIENT AND APPEAR TO BE REALISTIC REGARDING PT'S PROGNOSIS. THEY HAVE QUESTIONS ABOUT THE LIKELIHOOD OF PT BEING ABOUT TO WEIGHT BEAR AGAIN, AND IF SHE CAN TOLERATE RADIATION. SHE IS SCHEDULED TODAY FOR SURGICAL REPAIR OF PATHOLOGIC RIGHT FEMUR FRACTURE. THEY ALSO REPORT THE PATIENT IS SCHEDULED FOR RADIATION 2 TIMES THIS WEEK. BOTH PT AND WERE AGREEABLE TO CHANGE CODE STATUS TO DNR ONCE THEY VERBALIZED UNDERSTANDING OF THE DIFFERENCE BETWEEN FULL CODE AND DNR. THEY ARE STILL DECIDING ABOUT LIMITED VS FULL ON PART B, BUT LEANING TOWARDS LIMITED GIVEN THE PATIENT'S POOR PROGNOSIS. THIS PC RN WILL CONTINUE OFFERING SUPPORTIVE VISITS AND CONTINUE TO MONITOR PT'S ABILITY TO MANAGE RADIATION TREATMENTS.
[2025-06-17] MEDS ORDERED: Tranexamic Acid 100 ML IV SCH (15:45)
--- NOTE | 2025-06-17 16:11 | NUR ---
SUMMARY PT UNABLE TO HAVE SURGERY TODAY KEPT GETTING DELAYED. PLAN IS NPO AFTER MIDNIGHT AGAIN TONIGHT AND HOPEFULLY GO FOR FIXATION TOMORORW. RADIATION RIDE AND TREATMENT WERE CANCELLED FOR MONDAY BUT SHOULD BE ABLE TO GO MONDAY. DR. RODRIGUEZ ROUNDED ON PT THIS EVENING TO APOLIGIZE AND UPDATE HER. PT C/O PAIN TO BACK PRN IV DILAUDID AND PO OXY TO MANAGE PAIN. PT MOANING/WINCING WITH REPOSITIONING. DROWSY ALL DAY. AROUSABLE TO VOICE. PT GIVEN YOGURT AND APPLESAUCE THIS EVENING SHE STATES IT IS HARD FOR HER TO CHEW/PAINFUL.
[2025-06-18] VITALS (21 sets, daily range): BP systolic 82–186; BP diastolic 45–80
--- NOTE | 2025-06-18 04:29 | NUR ---
SHIFT SUMMARY: PT AOX4 MUCH MORE DROWSY AND TIRED THAN PREVIOUS NIGHTS. CALLS APPROPRAITELY AND ABLE TO MAKE NEEDS KNOWN. URINE IS STARTING TO CLEAR UP THE NIGHT GOES ON. COMPLAINING OF MORE SEVERE PAIN, MEDICATED PER EMR. ANXIOUS TO HAVE PROCEDURE TODAY. PT MADE NPO AT MIDNIGHT FOR PROCEDURE TODAY. PURE WICK IN PLACE WITH GOOD DRAINAGE. NO ACUTE OVERNIGHT EVENTS. PT IN BED RESTING, BED IN LOWEST POSITION, CALL LIGHT IN REACH. CONTINUING CARE.
[2025-06-18 05:58] LABS: Hematocrit 40.8 % (33.0-51.0); Hemoglobin 13.5 g/dL (11.5-16.0); Mean Corpuscular HGB Conc 33.1 g/dL (31.5-36.5); Mean Corpuscular Volume 98 fL (80-100); NRBC ABSOLUTE 0.00 K/mm3 (0.00-0.02); NRBC Auto 0.0 /100 WBC (0.0-0.2); Platelet Count 139 K/mm3 (150-400); RDW Coefficient Variation 15.3 % (11.7-14.2); RDW Standard Deviation 54.7 fL (35.1-46.3)
[2025-06-18 06:25] LABS: Anion Gap 5.0 mmol/L (3-11); Blood Urea Nitrogen 19.0 mg/dL (8-24); CO2, Blood 36.0 mmol/L (21-32); Calcium, Blood 10.4 mg/dL (8.5-10.1); Chloride, Blood 99.0 mmol/L (98-108); Creatinine, Blood 0.56 mg/dL (0.40-1.00); Glucose, Blood 94.0 mg/dL (70-99); Phosphorus, Blood 2.5 mg/dL (2.5-4.9); Potassium, Blood 3.9 mmol/L (3.5-5.5); Sodium, Blood 136.0 mmol/L (136-145)
--- NOTE | 2025-06-18 07:55 | NUR ---
PT TAKEN DOWN TO DAY SURG AT 0754, NOTIFIED FINANCE ADMINISTRATOR
--- NOTE | 2025-06-18 08:16 | NUR ---
PT BROUGHT TO [facility] IN BED FOR RIGHT TFNA. PT HAS EYES CLOSED BUT ANSWERS APPROPRIATELY. A+O X 3. Patient confirms NPO status and agrees with scheduled surgery. History, Chart, Medications and Allergies reviewed before start of procedure.Pre-Op teaching done. Pt verbalizes understanding. PT C/O PAIN IN RIGHT HIP AREA 06/18. PT HAS ON ATTENDS. PT HAS A 20 G IV IN LFA THAT FLUSHES EASILY.
--- NOTE | 2025-06-18 08:19 | NUR ---
PT LUNGS DIMINISHED AND SHE HAS A PRODUCTIVE COUGH.
[2025-06-18] MEDS ORDERED: Ketamine HCl 100 MG / ML 5ML Vial ONE (09:09)
--- NOTE | 2025-06-18 09:12 | NUR ---
DR. NATH AT BS TALKING TO PT
--- NOTE | 2025-06-18 09:19 | NUR ---
CALLED SPOUSE JACKIE. UPDATED HIM ON WHEN PT WENT DOWN TO DAY SURG AND EST TIME OF BEING TAKEN INTO OR. TOLD SPOUSE HE COULD WAIT IN OR WAITING ROOM FOR DOCTOR TO UPDATE HIM. ATTEMPTED TO CALL SPOUSE PRIOR TO PT GOING DOWN TO DAY SURG EARLY THIS AM BUT HE DIDNT ANSWER.
[2025-06-18] MEDS ORDERED: Phenylephrine HCl 100 MCG/ML-NS 10MLSYR (1MG/10ML) ONE (09:30)
[2025-06-18] MEDS ORDERED: Magnesium Hydroxide Conc 10 ML UDC PO PRN (09:55)
[2025-06-18] MEDS ORDERED: FentaNYL Citrate 50 MCG/ML 2 ML Injection ONE ×2 (10:09→11:23)
[2025-06-18] MEDS ORDERED: Ondansetron HCl 2 MG / ML 2ML Vial ONE (10:11)
[2025-06-18] MEDS ORDERED: Dexamethasone Sod Phos 10 MG/ML 1ML VIAL ONE (10:11)
[2025-06-18] MEDS ORDERED: FentaNYL Citrate 50 MCG/ML 2 ML Injection IV PRN ×3 (10:15→16:45)
[2025-06-18] MEDS ORDERED: HYDROmorphone HCl/Pf 1MG SYR IV PRN ×2 (10:20)
[2025-06-18] MEDS ORDERED: Ondansetron HCl 2 MG / ML 2ML Vial IV PRN (10:20)
[2025-06-18] MEDS ORDERED: Ketorolac Tromethamine 30mg Vial ONE (11:14)
--- NOTE | 2025-06-18 15:05 | NUR ---
ATTEMPTED TO NOTIFY DR. LACEY OF PATIENTS BLOOD PRESSURE OF 83/51. NO ANSWER. LEFT MESSAGE. WAITING ALL TERRAIN VEHICLE RACER BACK. PT AROUSABLE TO VOICE WHICH HAS BEEN HER BASELINE. HOB SLIGHTLY ELEVATED DUE TO WEAK NONPRODUCTIVE COUGH/COURSE LUNGS. DYSPHAGIA PRECUATIONS.
[2025-06-18] MEDS ORDERED: NS 1,000 ML IV ONE (15:25)
[2025-06-18] MEDS ORDERED: CeFAZolin Sodium 2,000 MG in NS 100 ML IV SCH (17:30)
--- NOTE | 2025-06-18 19:20 | NUR ---
SUMMARY PT TAKEN DOWN TO DAY SURG EARLY THIS AM ABOUT 0745. RETURNED FROM SURG AT APPROX. 1200. PT APPEARS PALE AND REQUIRING OXYGEN TO MAINTAIN SATS GREATER THAN 92% ON 4L. WAS ABLE TO WEAN TO 3L BUT WILL LEAVE PT HERE DUE TO CONTINUED LETHARGY AND IV PAIN MEDS TO MANAGE PT'S BONE PAIN THAT SHE REPORTS IS CONSTANT. PT VITALS DROPPED DOWNTO MID 80'S SYS B/P DR. LACEY WAS NOTIFIED AND ORDERED 1L BOLUS. BOLUS WAS COMPLETED AND VITALS ARE MAINTAINING SYS IN THE HIGH 90'S. DR. LACEY ORDERED TO CONTINUE CURRENT MAINTENENCE FLUIDS AND MADE CHANGES TO PAIN REGIMEN. ADMINISTERED 25 MCG OF FENT THIS EVENING PT IS MOANING AND WINCING IN PAIN WITH SLIGHT MOVEMENT. WAS AT BEDSIDE FOR A COUPLE HOURS POST SURGERY. 3 SURGICAL SITES PRESENT DOWN LATERAL RIGHT LEG. DRESSING C/D/I. PT URINATING POST SURGERY, INCOTNINENT PUREWICK PRESENT. PT TOO LETHARGIC TO EAT DINNER THIS EVENING. CHAGNED DIET TO SOFT BITE/SIZE FOR WHEN PT CAN TOLERATE PO INTAKE. PT ATE A PUDDING CUP AND HALF AN APPLESAUCE AFTER SURGERY TODAY. CONTINUES TO HAVE POOR ORAL INTAKE. NO BOWEL MOVEMENT. REPOSITIONING PT TOELRATED. NOW 50% WEIGHT BEARING TO RIGHT LEG, PENDING PHYSICAL THERAPY EVAL BUT THEY DID NOT ROUND TODAY AND PT IS NOT APPROPRIATE WITH HOW LETHERGIC SHE CONTINUES TO BE.
[2025-06-19 02:15] LABS: BASOPHILS ABSOLUTE AUTO 0.03 K/mm3 (0.00-0.23); BASOPHILS PERCENT AUTO 0 % (0-2); EOSINOPHILS ABSOLUTE AUTO 0.00 K/mm3 (0.00-0.68); EOSINOPHILS PERCENT AUTO 0 % (0-6); Hematocrit 26.1 % (33.0-51.0); Hemoglobin 8.7 g/dL (11.5-16.0); IMMATURE GRAN ABSOLUTE AUTO 0.15 K/mm3 (0.00-0.10); IMMATURE GRAN PERCENT AUTO 1 % (0-1); LYMPHOCYTES ABSOLUTE AUTO 0.59 K/mm3 (0.84-5.20); LYMPHOCYTES PERCENT AUTO 4 % (21-46); MONOCYTES ABSOLUTE AUTO 1.55 K/mm3 (0.16-1.47); MONOCYTES PERCENT AUTO 9 % (4-13); Mean Corpuscular HGB Conc 33.3 g/dL (31.5-36.5); Mean Corpuscular Volume 99 fL (80-100); NEUTROPHILS ABSOLUTE AUTO 14.31 K/mm3 (1.96-9.15); NEUTROPHILS PERCENT AUTO 86 % (41-73); NRBC ABSOLUTE 0.00 K/mm3 (0.00-0.02); NRBC Auto 0.0 /100 WBC (0.0-0.2); Platelet Count 126 K/mm3 (150-400); RDW Coefficient Variation 14.9 % (11.7-14.2); RDW Standard Deviation 54.0 fL (35.1-46.3)
--- NOTE | 2025-06-19 02:21 | NUR ---
PT HAD C/O OF CHEST PRESSURE AND DIFFICULTY BREATHING. VSS AND PT SPO2 >95% ON 3L/NC. HOSPITALIST NOTIFIED AND ORDERS FOR EKG AND TROPNONINS ORDERED. 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 TROPONIN PENDING.
--- NOTE | 2025-06-19 02:49 | NUR ---
HOSPITALIST NOTIFIED THAT FIRST TROPONIN 91, SECOND DRAW IS @ 0530. NO FURHTER ORDERS AT THIS TIME.
--- NOTE | 2025-06-19 02:54 | NUR ---
PT HGB DROPPED FROM 13.5 TO 8.7 POST R FEMORAL NAILING YESTERDAY. HOSPITALIST NOTIFIED AND H/H REDRAW ORDERED FOR 0900.
[2025-06-19 03:02] VITALS: BP 116/69
--- NOTE | 2025-06-19 03:33 | NUR ---
PT OUTWARD APPEARANCE SEEMS WORSE. CBC SHOWED HGB DROP FROM 13.5 TO 8.7 AND PT IS POST OP R FEMUR PINNING YESTERDAY WITH EBL OF 150 ML. SURGICAL SITE SHOWS NO SIGNS OF SHADOWING. VSS. HOSPITALIST NOTIFIED AND CAME TO ASSESS PT. PT REPEATEDLY SAYING THAT THEY WANT TO AND WANT TO BE ON COMFORT MEASURES. DR PARKS ATTEMPTED TO CALL PT SPOUSE BUT THEY DID NOT ANSWER AT THIS TIME. REPEAT CBC AND CMP ORDERED FOR AM LABS TO MONITOR H/H. PAIN RX ALREADY Q2H FOR IV FENTANYL. DR PARKS WILL PASS OFF PT REQUEST TO [facility].
[2025-06-19] MEDS ORDERED: NS 500 ML IV SCH (03:40)
[2025-06-19 04:08] VITALS: BP 116/64
[2025-06-19 04:34] LABS: BASOPHILS ABSOLUTE AUTO 0.03 K/mm3 (0.00-0.23); BASOPHILS PERCENT AUTO 0 % (0-2); EOSINOPHILS ABSOLUTE AUTO 0.01 K/mm3 (0.00-0.68); EOSINOPHILS PERCENT AUTO 0 % (0-6); Hematocrit 25.3 % (33.0-51.0); Hemoglobin 8.5 g/dL (11.5-16.0); IMMATURE GRAN ABSOLUTE AUTO 0.16 K/mm3 (0.00-0.10); IMMATURE GRAN PERCENT AUTO 1 % (0-1); LYMPHOCYTES ABSOLUTE AUTO 0.64 K/mm3 (0.84-5.20); LYMPHOCYTES PERCENT AUTO 4 % (21-46); MONOCYTES ABSOLUTE AUTO 1.72 K/mm3 (0.16-1.47); MONOCYTES PERCENT AUTO 10 % (4-13); Mean Corpuscular HGB Conc 33.6 g/dL (31.5-36.5); Mean Corpuscular Volume 99 fL (80-100); NEUTROPHILS ABSOLUTE AUTO 13.97 K/mm3 (1.96-9.15); NEUTROPHILS PERCENT AUTO 84 % (41-73); NRBC ABSOLUTE 0.00 K/mm3 (0.00-0.02); NRBC Auto 0.0 /100 WBC (0.0-0.2); Platelet Count 121 K/mm3 (150-400); RDW Coefficient Variation 15.0 % (11.7-14.2); RDW Standard Deviation 53.4 fL (35.1-46.3)
[2025-06-19] MEDS ORDERED: Ketorolac Tromethamine 15mg Vial IV ONE (04:45)
[2025-06-19 04:57] LABS: Alanine Aminotransfer (ALT/SGP 20.0 U/L (12-78); Albumin, Blood 2.3 g/dL (3.4-5.0); Albumin/Globulin Ratio 0.8 (0.8-1.8); Anion Gap 4.0 mmol/L (3-11); Aspartate Aminotrans (AST/SGOT 46.0 U/L (12-37); Bilirubin, Total 0.4 mg/dL (0.1-1.0); Blood Urea Nitrogen 33.0 mg/dL (8-24); CO2, Blood 33.0 mmol/L (21-32); Calcium, Blood 9.2 mg/dL (8.5-10.1); Chloride, Blood 105.0 mmol/L (98-108); Creatinine, Blood 0.74 mg/dL (0.40-1.00); Globulin, Blood 2.8 g/dL (2.2-4.0); Glucose, Blood 103.0 mg/dL (70-99); Potassium, Blood 4.5 mmol/L (3.5-5.5); Sodium, Blood 137.0 mmol/L (136-145); Total Protein, Blood 5.1 g/dL (6.4-8.2)
--- NOTE | 2025-06-19 05:25 | NUR ---
SHIFT SUMMARY NOC PT A/O X 4. PLEASANT AND COOPERATIVE WITH CARE. POST OP DAY 1 FOR R HIP NAILING. BP HAS BEEN IMPROVING, BUT LOPRESSER HELD DUE TO SYSTOLIC <100. BEING MANAGED PER EMAR. PT WAS LESS LETHARGIC THEN DURING DAY SHIFT. PT ON TELE SINUS RHYTHM IN 70'S. IVF INFUSING PER EMAR. PUREWICK IN PLACE. PT HAD C/O OF CHEST PRESSURE AND DIFFICULTY BREATHING. VSS AND SPO2 >95% ON 3L/NC. FIRST TROPONIN 91 SECOND 86, EKG WITH NO NEW FINDINGS. HGB 8.7 DOWN FORM 13.5 PRIOR DAY AND POST OP. HOSPITALIST NOTIFIED AND CAME TO ASSESS PT. PT KEEPS SAYING THAT THEY WANT TO AND IS AGREEABLE TO BE PUT ON COMFORT MEASURES AFTER SPEAKING [place] SPOUSE WHO HOSPITALIST ATTEMPTED TO CONTACT WITHOUT SUCESS, THEY WILL PASS ALONG TO ONCOMING MD PT SITUATION. AM CBC REDRAW SHOWED HGB 8.5. POTASSIUM NOW 4.5. PT CURRENTLY RESTING WITH BED IN LOWEST POSITION, AND CALL LIGHT WITHIN REACH.
[2025-06-19 07:29] VITALS: BP 123/68
[2025-06-19] MEDS ORDERED: Enoxaparin 40 MG/0.4 ML SYR SC SCH (09:00)
[2025-06-19] MEDS ORDERED: Morphine Sulfate 20 MG/1ML 1 ML Oral Syringe SL PRN (10:05)
--- NOTE | 2025-06-19 11:52 | NUR ---
ASSESSED PATIENT, SHE WAS SLEEPING. PER RN PATIENT WAS CONFUSED AND EXPRESSING THAT SHE "WANTED TO ". BSRN UNSUCESSFULLY ATTEMPTED TO CALL PATIENTS . THIS PCRN CALLED PATIENTS LEFT VM.
--- NOTE | 2025-06-19 13:31 | NUR ---
CASE CONFERENCE: MET WITH PT AND JACKIE. PT IS ALERT, ORIENTED X'S 2. SHE BECOMES EASILY CONFUSED, BUT IS ABLE TO STATE SHE WANTS TO GO HOME. THIS PC RN SPOKE WITH DR. BARBOZA THIS MORNING, AND HE STATES BOTH HE AND ORTHOPEDIST FEEL PAIN CONTROL IS THE APPROPRIATE PATH FOR PATIENT. PHYSICAL THERAPY UNABLE TO SAFELY WORK WITH PATIENT. GIVEN THIS UPDATE, JACKIE AGREEABLE TO TAKE PT HOME WITH HOSPICE. THE PATIENT VERBALIZES HER DESIRE TO RETURN HOME SOON POSSIBLE, AND SHE ALSO AGREES THAT PAIN CONTROL IS HER TOP PRIORITY. HOSPICE CHOICE GIVEN, THEY PREFER NEXT AVAILABLE VS A SPECIFIC HOSPICE. [facility] UNAVAILABLE BEFORE FRIDAY 06/22. [facility] IS AVAIALABLE TOMORROW, AND THIS PC RN HAS ALREADY SENT 2 HOSPICE REFERRALS TO [facility]. REQUESTING HOSPICE ORDER FROM DR. BARBOZA NOW, AND SENDING REFERRAL PACKET TO [facility].
--- NOTE | 2025-06-19 14:34 | NUR ---
POLST SIGNED BY PROVIDER. COPY SENT TO REGISTRY, AND MEDICAL RECORDS. ORIG PLACED IN PT CHART
[2025-06-19 15:47] VITALS: BP 103/49
--- NOTE | 2025-06-19 17:18 | NUR ---
SHIFT SUMMARY PT IS A/OX2. BEDREST AT THIS TIME. DRESSING TO THE R HIP REMAINS C/D/I. PT MEDICATED FOR PAIN WITH FENTANYL AND ROXANOL PER DEC. ON 3L NC, SATS >92%. THIS MORNING PT CALLING OUT FOR "JACKIE". THIS RN AT THE BEDSIDE AND PT REPEATING THAT SHE WISHES TO . PALLIATIVE CARE AND , JACKIE, AT BEDSIDE TO DISCUSS GOALS OF CARE. PLAN IS TO DC HOME WITH HOPSICE TOMORROW.
[2025-06-19 19:39] VITALS: BP 115/52
[2025-06-19] MEDS ORDERED: NS 1,000 ML IV SCH (23:55)
--- NOTE | 2025-06-20 04:15 | NUR ---
PT RESTED COMFORTABLY AFTER A 5MG DOSE OF ROXINOL. NEW IV PUT IN HER L AC FOR NS @ 75ML/HR. BED IN LOWEST POSITION, BED EXIT ALARM ENGAGED, PERSONAL BELONGINGS AND CALL [facility] WITHIN REACH.
[2025-06-20 04:27] VITALS: BP 142/59
[2025-06-20 07:28] VITALS: BP 125/60
[2025-06-20] MEDS ORDERED: DECADRON4 M1 PO (11:49)
[2025-06-20] MEDS ORDERED: MORPHINE S10 MG/1 M2 SL (11:51)
--- NOTE | 2025-06-20 12:40 | NUR ---
PT DISCHARGED HOME WITH HOSPICE. PT SENT WITH DISCHARGE INSTRUCTIONS AND ORIGINAL COPY OF OF POLST FORM.
--- NOTE | 2025-06-21 11:11 | NUR ---
discharge medications attempted to call contact information phone number sto notify pt/family that her medcations had been left after discahrge. Both [facility] numbers had full mail boxs. Unable to[employer] message.
== END 2025-06-20 12:38 | disposition hospice, home (50) | DRG 480 ==
LOC: ER 11:36 → MEDS 16:40 → ERHOLD 16:40 → MEDS 19:58 → ENPENDDIS 06-20 11:56 → MEDS 06-20 12:38
PROVIDERS: Emergency Medicine; Internal Medicine; Orthopaedic Surgery; Student in an Organized Health Care Education/Training Program; ADMIT Internal Medicine
PROC: 3E03329 Introduction of Other Anti-infective into Peripheral Vein, Percutaneous Approach (ICD-10-PCS; 2025-06-16)
PROC: 0QH634Z Insertion of Internal Fixation Device into Right Upper Femur, Percutaneous Approach (ICD-10-PCS; principal; 2025-06-18 09:30)
DX: M84.551A Pathological fracture in neoplastic disease, right femur, initial encounter for fracture (principal); E43 Unspecified severe protein-calorie malnutrition; C34.90 Malignant neoplasm of unspecified part of unspecified bronchus or lung; C78.7 Secondary malignant neoplasm of liver and intrahepatic bile duct; C77.9 Secondary and unspecified malignant neoplasm of lymph node, unspecified; C79.31 Secondary malignant neoplasm of brain; I47.10 Supraventricular tachycardia, unspecified; N39.0 Urinary tract infection, site not specified; E87.6 Hypokalemia; E86.0 Dehydration; E83.52 Hypercalcemia; I10 Essential (primary) hypertension; F17.210 Nicotine dependence, cigarettes, uncomplicated; R11.2 Nausea with vomiting, unspecified; I48.91 Unspecified atrial fibrillation; G93.9 Disorder of brain, unspecified; Z68.25 Body mass index [BMI] 25.0-25.9, adult; Z87.19 Personal history of other diseases of the digestive system; Z79.899 Other long term (current) drug therapy; Z79.82 Long term (current) use of aspirin
CPT/HCPCS: 36415; 70450; 70553; 73502; 73552; 73720; 80048; 80053; 80069; 81001; 82330; 83735; 84100; 84484; 85025; 85027; 85610; 86850; 86900; 86901; 87077; 87086; 87186; 93005; 93010; 93306; 94760; 96365; 99285-25; A9270; A9579; C1713; C1769; J0690; J0696; J0780; J1100; J1171; J1650; J1885; J2371; J2405; J2470; J2704; J3010; J3480; J7030; J7050; J7060; J7120